=== PATIENT | female | born 1990 | race Caucasian/White ===

== ENCOUNTER 2017-03-24 01:05 | Emergency (ER) | payer MEDICAID ==
[~2017-03-24] VITALS: Ht 165.1 cm; Wt 68.6 kg
[2017-03-24 01:07] VITALS: BP 138/100
[2017-03-24] MEDS ORDERED: ONDANSETRON ODT 4 MG PO ONE (02:00)
[2017-03-24 02:02] LABS: HEMATOCRIT 45.4 % (34.6-47.8); HEMOGLOBIN 15.6 g/dL (11.7-16.4); WHITE BLOOD COUNT 4.2 x10^3/uL (3.4-10)
[2017-03-24 02:16] LABS: ASPARTATE AMINO TRANSFERASE 32 U/L (15-37); BLOOD UREA NITROGEN 8 mg/dL (7-18)
[2017-03-24] MEDS ORDERED: ONDANSETRON ODT 4 MG ONE (02:21)
== END 2017-03-24 04:18 | disposition home or self-care (01) ==
LOC: ED 01:16
DX: R11.2 Nausea with vomiting, unspecified (principal); M79.601 Pain in right arm; M79.602 Pain in left arm; M79.661 Pain in right lower leg; M79.662 Pain in left lower leg; F10.229 Alcohol dependence with intoxication, unspecified
CPT/HCPCS: 36415; 80053; 84703; 85025; 85610; 85730; 99284; Q0162

== ENCOUNTER 2017-05-03 15:21 | Emergency (ER) | payer MEDICAID ==
[~2017-05-03] VITALS: Ht 165.1 cm; Wt 71.2 kg
[2017-05-03 15:23] VITALS: BP 129/72
[2017-05-03] MEDS ORDERED: ALBUTEROL SULFATE 2.5 MG/3 ML NPPB ONE ×2 (16:00→17:00)
[2017-05-03] MEDS ORDERED: ALBUTEROL SULFATE 2.5 MG/3 ML ONE (16:44)
== END 2017-05-03 17:35 | disposition home or self-care (01) ==
LOC: ED 17:29
DX: J45.31 Mild persistent asthma with (acute) exacerbation (principal); J20.9 Acute bronchitis, unspecified
CPT/HCPCS: 71020; 93005; 94640; 99284; J7512